=== PATIENT | female | born 1975 | race Caucasian/White ===

== ENCOUNTER 2021-02-14 21:18 | Emergency (ER) | payer SELFPAY ==
[~2021-02-14] VITALS: Ht 157.5 cm; Wt 76.2 kg
[2021-02-15] MEDS ORDERED: KETOROLAC TROMETHAMINE 60 MG INJ IM ONE ×2 (01:00→01:44)
--- NOTE | 2021-02-15 01:00 | NUR ---
Patient A/Ox3, no distress noted, c/o neck, [place], left shoulde, arm and left knee pain after a slip and fall. Patient denies being KO'ed,. No beds available in the ER at this time. Patient placed in hallway.
--- NOTE | 2021-02-15 01:05 | NUR ---
PT TAKEN TO CT.
--- NOTE | 2021-02-15 01:15 | NUR ---
Patient back from ct scan.
[2021-02-15] MEDS ORDERED: CYCLOBENZAPRINE HCL 10 MG TABLET PO ONE (01:45)
[2021-02-15] MEDS ORDERED: CYCLOBENZAPRINE HCL 10 MG TABLET ONE (02:08)
[2021-02-15] MEDS ORDERED: ONDANSETRON ODT 4 MG TAB.RAPDIS ONE (02:52)
[2021-02-15] MEDS ORDERED: ONDANSETRON ODT 4 MG TAB.RAPDIS SL ONE (03:00)
--- NOTE | 2021-02-15 03:20 | NUR ---
Patient discharged to home in stable condition WITH FRIEND TAKING PATIENT HOME. Written and verbal after care instructions given. Patient verbalizes understanding of instructions. Stressed follow up or return to ER for worsening s/s.
[2021-02-15] MEDS ORDERED: CYCL5TAB PO (03:34)
[2021-02-15] MEDS ORDERED: NAPR-1164 PO (03:34)
[2021-02-15 04:53] VITALS: BP 149/85
== END 2021-02-15 03:20 | disposition home or self-care (01) ==
LOC: ER 21:23
DX: S13.9XXA Sprain of joints and ligaments of unspecified parts of neck, initial encounter (principal); S43.402A Unspecified sprain of left shoulder joint, initial encounter; S09.90XA Unspecified injury of head, initial encounter; R41.3 Other amnesia; M54.50 Low back pain, unspecified; W01.0XXA Fall on same level from slipping, tripping and stumbling without subsequent striking against object, initial encounter; Y93.9 Activity, unspecified; Y92.000 Kitchen of unspecified non-institutional (private) residence as the place of occurrence of the external cause; R03.0 Elevated blood-pressure reading, without diagnosis of hypertension
CPT/HCPCS: 70450; 72125; 72220; 73030; 96372; 99285; J1885; Q0162

== ENCOUNTER 2021-02-15 16:37 | Emergency (ER) | payer SELFPAY ==
[~2021-02-15] VITALS: Ht 157.5 cm; Wt 77.1 kg
[~2021-02-15 16:37] MED LIST: CYCL5TAB PO; NAPR-1164 PO
--- NOTE | 2021-02-15 18:00 | NUR ---
Attempted to triage pt, pt was not found in ER waiting room or outside ER.
== END 2021-02-16 01:42 | disposition left against medical advice (07) ==
LOC: ER 16:39
DX: Z53.21 Procedure and treatment not carried out due to patient leaving prior to being seen by health care provider (principal)